=== PATIENT | female | born 1930 | race Two or more races ===

== ENCOUNTER 2017-05-15 02:00 | Emergency (ER) | payer MEDICARE ==
[~2017-05-15 02:00] MED LIST: FURO20TA19 PO; LEVO25TA57 PO; MULT-885 PO
--- NOTE | 2017-05-15 02:27 | ER Report ---
History and Physical Time Seen By MD: 02:27 HPI/ROS CHIEF COMPLAINT: Nosebleed from right nose HISTORY OF PRESENT ILLNESS: 86-year-old female presents with heavy nose bleeding tonight. She wears oxygen with a nasal cannula. Tonight she had aggressive bleeding from her right nose. She takes no blood thinners. He does have a history of high blood pressure. Her blood pressures mildly elevated on arrival. REVIEW OF SYSTEMS: Respiratory: No cough, no dyspnea. Cardiovascular: No chest pain, no palpitations. Gastrointestinal: No vomiting, no abdominal pain. Musculoskeletal: No back pain. Allergies: Coded Allergies: Penicillins (Verified Allergy, 09/25/12) Sulfa (Sulfonamide Antibiotics) (Verified Allergy, 09/25/12) amphetamine (Verified Allergy, 09/25/12) Home Meds Reported Medications Levothyroxine Sodium (SYNTHROID) 25 Mcg Tablet, 25 MCG PO QDAY 09/25/12 Furosemide (LASIX) 20 Mg Tablet, 1 TAB PO QDAY TAKE ONE TABLET BY MOUTH EVERY 6-8 HOURS 09/25/12 Multivitamin (DAILY VITAMIN) 1 Each Tablet, 1 EACH PO QDAY 09/25/12 Reviewed Nurses Notes: Yes Old Medical Records Reviewed: Yes Hx Smoking: No Hx Substance Use Disorder: No Constitutional Vital Sign - Last 24 Hours 05/15/17 02:29 Temp 98.7 Pulse 84 Resp 18 B/P (MAP) 153/66 Pulse Ox 85 O2 Delivery Room Air Physical Exam General Appearance: The patient is alert, has no immediate need for airway protection and no current signs of toxicity. Vital signs stable, blood pressure 153/96 HEENT: Pupils equal and round no injection. TMs normal, nasal passages. There is a fresh clot and friable vessels in the right nares and Kiesselbach's area. Respiratory: Chest is non tender, lungs are clear to auscultation. Cardiac: regular rate and rhythm Gastrointestinal: Abdomen is soft and non tender, no masses, bowel sounds normal. Musculoskeletal: Neck: Neck is supple and non tender. No JVD, no lymphadenopathy Extremities have full range of motion and are non tender. No edema Skin: No rashes or lesions. DIFFERENTIAL DIAGNOSIS: After history and physical exam differential diagnosis was considered for nosebleed, epistaxis, coagulopathy, hypertension Medical Decision Making ED Course/Re-evaluation ED Course Patient was admitted to an examination room. H&P was done. The differential diagnoses was considered. On clinical examination. Patient has active bleeding at a fresh clot in her right nares. She wears nasal cannula. There is an erosion. A cotton ball saturated in Shane-Synephrine was placed in her nasal passage for 5 minutes. It was removed. Silver nitrate cautery was applied to the affected area. There was a good area of cautery noted. No fresh bleeding was observed. After 20 minutes. She was discharged home with instructions to cut the tips off her nasal cannula at a shorter length. She was advised to apply small dabs petroleum jelly and roll a Q-tip around her nasal passage to moisturize the membrane allowed to heal. Patient was given information to follow-up with Dr. Washington Saleem ENT if she has continued bleeding or problems. Decision to Disposition Date: May 15, 2017 Decision to Disposition Time: 02:49 Depart Departure Latest Vital Signs Vital Signs Date Time Temp Pulse Resp B/P (MAP) Pulse Ox O2 Delivery O2 Flow Rate FiO2 05/15/17 02:29 98.7 84 18 153/66 85 Room Air Impression: Primary Impression: Nosebleed Additional Impression: Hypoxia Condition: Improved Disposition: HOME OR SELF-CARE Referrals: WASHINGTON SALEEM JR, MD Patient Instructions: Nosebleed (ED) Additional Instructions: Use a Q-tip and a small dab of double or triple antibiotic ointment and moisturize the lower 1/2 inch of your nose Cut the tip off of your nasal cannula Follow-up with your primary care or ENT if not improved, call Dr. Washington Saleem [phone] Problem Qualifiers ANI WATSON DO May 15, 2017 02:27
[2017-05-15] MEDS ORDERED: ENT KIT ONE (02:39)
[2017-05-15 03:25] VITALS: BP 115/59
[2017-05-15] MEDS ORDERED: PHENYLEPHRINE 0.5% 15 ML BTL ONE (04:38)
== END 2017-05-15 03:25 | disposition home or self-care (01) ==
LOC: ER 02:34
DX: R04.0 Epistaxis (principal); R09.02 Hypoxemia
CPT/HCPCS: 99283